=== PATIENT | female | born 1970 | race Hispanic/Latino ===

== ENCOUNTER 2016-10-10 20:16 | Emergency (ER) | payer OTHER ==
[2016-10-10] MEDS ORDERED: ACETAMINOPHEN 325 MG TABLET PO ONE ×2 (20:57)
[2016-10-10] MEDS ORDERED: cloNIDine HCL 0.1 MG TABLET PO ONE (20:57)
--- NOTE | 2016-10-10 21:51 | ER PHYSICIAN DOCUMENTATION ---
Physician Documentation [facility] Name:Bianca Galvan Age:46 yrs Sex:Female :1970 Arrival Date:10/10/2016 Time:20:16 BedTrauma B Private MD: Sanket Pereyra Disposition: 10/10/16 21:15 Discharged to Home/Self Care. Impression: Cephalgia - : 2nd to Alt[place] Illness and Hypertension, Dehydration. - Condition is Good. - Discharge Instructions: DEHYDRATION (7y-Adult), HEADACHE, Unspecified, Blood Pressure - HYPERTENSION, To Be Confirmed. - Medical Reconciliation form form. - Follow up: Private Physician; When: 7 - 10 days; Reason: Recheck today's complaints, Continuance of care. - Problem is new. - Symptoms have improved. - Notes: Drink 2 -3 quarts of water or Gatorade every day. Rest...go to lower elevation if symptoms continue... Take Tylenol 650mg by mouth every 6 hours for headache... HPI: 10/10 20:20 This 46 yrs old Female presents to ER via Private Vehicle with complaints of cd Headache, Blood Pressure Problem. 20:20 The patient complains of pain to the forehead, right eye and left eye. The patient cd describes the headache as constant, a pressure. Onset: The symptoms/episode began/occurred acutely, 3 hour(s) ago. Associated signs and symptoms: Pertinent negatives: altered mental status, dizziness, fever, nausea, neck stiffness, paresthesias, sinus congestion, sinus tenderness, vision changes, vision loss, vomiting. Severity of symptoms: At its worst the pain was moderate, in the emergency department the pain is unchanged. Headache History: Denies prior headaches. Risk factors for subarachnoid hemhorrage: no risk factors present. Patient took her BP at home and was found with a BP of 179/115 at home. She has a Hx of Pre-eclampsia during , but has not formerly been diagnosed.. Historical: - Allergies: No known drug Allergies; - Home Meds: 1. None - PMHx: Hypertension; - PSHx: None; - Tetanus: unknown. - Ebola Screening: : Patient negative for fever greater than or equal to 101.5 degrees Fahrenheit, and additional compatible Ebola Virus Disease symptoms. Patient denies exposure to infectious person. Patient denies travel to an Ebola-affected area in the 21 days before illness onset. No symptoms or risks identified at this time. . - Immunization history: Unable to Obtain. - Social history: Smoking status: Patient states was never smoker of tobacco. Patient uses alcohol but reports only rare drinking. ROS: 21:00 ENT: Negative for injury, pain, epistaxis and discharge. cd Cardiovascular: Negative for chest pain, palpitations, edema and pleuritic pain. Respiratory: Negative for shortness of breath, dyspnea on exertion, cough, sputum production, wheezing, hemoptysis and pleuritic chest pain. Back: Negative for injury, pain or muscle spasms. : Negative for injury, bleeding, discharge, dysuria, frequency, urgency and swelling. MS/Extremity: Negative for injury, deformity, edema, calf tenderness, pain or coldness. 21:00 Skin: Negative for injury, rash, itching and discoloration. cd 21:00 Constitutional: Positive for poor PO intake, Negative for chills, fever. 21:00 Neck: Negative for pain with movement, pain at rest, stiffness. 21:00 Abdomen/GI: Negative for nausea, vomiting. 21:00 Neuro: Positive for headache, Negative for altered mental status, gait disturbance, loss of consciousness, seizure activity, speech changes, syncope, near syncope, visual changes, weakness. 21:00 All other systems are negative. Exam: Head/Face: Normocephalic, atraumatic. ENT: Nares patent. No nasal discharge, no septal abnormalities noted. Tympanic membranes are normal and external auditory canals are clear. Oropharynx with no redness, swelling, or masses, exudates, or evidence of obstruction, uvula midline. Mucous membranes moist. Neck: Trachea midline, no thyromegaly or masses palpated, and no cervical lymphadenopathy. Supple, full range of motion without nuchal rigidity, or vertebral point tenderness. No Meningismus. Chest/axilla: Normal chest wall appearance and motion. Nontender with no deformity. No lesions are appreciated. Cardiovascular: Regular rate and rhythm with a normal S1 and S2. No gallops, murmurs, or rubs. Normal PMI, no JVD. No pulse deficits. Respiratory: Lungs have equal breath sounds bilaterally, clear to auscultation and percussion. No rales, rhonchi or wheezes noted. No increased work of breathing, no retractions or nasal flaring. Abdomen/GI: Soft, non-tender, with normal bowel sounds. No distension or tympany. No guarding or rebound. No evidence of tenderness throughout. Back: No spinal tenderness. No costovertebral tenderness. Full range of motion. Skin: Warm, dry with normal turgor. Normal color with no rashes, no lesions, and no evidence of cellulitis. 21:00 MS/ Extremity: Pulses equal, no cyanosis. Neurovascular intact. Full, normal range cd of motion. 21:00 Constitutional: The patient appears alert, awake, non-diaphoretic, non-toxic, well developed, well nourished, anxious, in obvious distress, moderately distressed. 21:00 Eyes: Pupils: equal, round, and reactive to light and accomodation, Extraocular movements: intact throughout. 21:00 Neuro: Orientation: is normal, to person, place & time. Mentation: is normal, Memory: is normal, Cranial nerves: CN II- XII are normal as tested, Motor: moves all fours, strength is normal, Sensation: is normal, Gait: is steady. Vital Signs: 20:30 BP 165 / 95; Pulse 77; Resp 28; Pulse Ox 96% on R/A; Pain 6/10; rs 21:17 BP 157 / 83; Pulse 69; Resp 20; Pulse Ox 97% on R/A; Pain 2/10; rs [place] Coma Score: 21:00 Eye Response: spontaneous(4). Verbal Response: oriented(5). Motor Response: obeys cd commands(6). Total: 15. 21:15 Eye Response: spontaneous(4). Verbal Response: oriented(5). Motor Response: obeys cd commands(6). Total: 15. MDM: 20:25 Differential diagnosis: cluster headache, hypertensive headache, tension headache, cd vasomotor headache, Dehydration. 20:36 Patient medically screened. cd 21:15 Neurological re-evaluation: normal neurological exam including cranial nerves, cd orientation, mentation, motor and sensory exam, cerebellar testing, GCS normal, and normal gait. Data reviewed: vital signs, nurses notes, old medical records, and as a result, I will discharge patient. Data interpreted: Pulse oximetry: on room air is 97 %. Interpretation: normal. Counseling: I had a detailed discussion with the patient and/or guardian regarding: the historical points, exam findings, and any diagnostic results supporting the discharge/admit diagnosis, the need for outpatient follow up, for a recheck, with the patient's primary care provider, to return to the emergency department if symptoms worsen or persist or if there are any questions or concerns that arise at home. Response to treatment: the patient's symptoms have markedly improved after treatment, the patient's condition has returned to base line, and as a result, I will discharge patient. Dispensed Medications: Completed: NS 0.9% 1000 ml IV at bolus once 20:52 Drug: NS 0.9% 1000 ml; Route: IV; Rate: bolus; Site: left antecubital; fc 21:36 Follow up: IV Status: Completed infusion; IV Intake: 1000ml rs 20:52 Drug: cloNIDine 0.1 mg; Route: PO; fc 21:37 Follow up: Response: No adverse reaction rs 20:52 Drug: Tylenol 975 mg; Route: PO; fc 21:37 Follow up: Response: Marked relief of symptoms rs Signatures: Naya Burrell RN RN rs Sanket Washington MD MD cd collins, floyd fc
--- NOTE | 2016-10-10 21:51 | ER NURSING DOCUMENTATION ---
Nurse's Notes [facility] Name:Bianca Galvan Age:46 yrs Sex:Female :1970 Arrival Date:10/10/2016 Time:20:16 BedTrauma B Private MD: Diagnosis:Cephalgia-: 2nd to Altitude Illness and Hypertension;Dehydration Presentation: 10/10 20:30 Method Of Arrival: Private Vehicle rs 20:30 Presenting complaint:. Transition of care: patient was not received from another setting of care. 20:30 Acuity: MICHELLE 3 rs 20:49 Presenting complaint: Patient states: C/O BRODY behind her eyes. Started yesterday after rs she came to [place] from [place]. She has been drinking large amounts of water, took one dose of Advil today at 1:30 without relief, and a dose of Excedrin at ^:30 pm which did give her a little relief. At 8 pm this evening her BP was checked 179/115, and then she decided to come to ER. Hx of HTN, not tx with medications. No vision changes, no n/v, does have some tingling in her right arm. Denies feeling stressed or anxious, she is here for a women's retreat. Triage Assessment: 21:00 Headache History: Denies prior headaches. General: Appears in no apparent distress, rs comfortable, well developed, well nourished, well groomed, Behavior is cooperative, pleasant. Pain: Complains of pain in Behind her eyes Pain currently is 6 out of 10 on a pain scale. EENT: No deficits noted. Denies blurred vision photophobia nasal congestion, nasal discharge. Neuro: No deficits noted. Level of Consciousness is awake, alert, Oriented to person, place, time, event, High Speed Warper Tender are equal bilaterally Moves all extremities. Gait is steady, Speech is normal, Facial symmetry appears normal, Pupils are PERRLA, Reports. Cardiovascular: No deficits noted. Capillary refill < 3 seconds Edema is absent. Pulses are 3+ in left radial artery Denies lightheadedness, palpitations, syncope, Chest pain is denied. Respiratory: No deficits noted. Respiratory effort is even, unlabored, Respiratory pattern is regular, symmetrical, Denies shortness of breath. GI: No deficits noted. Abdomen is flat, Bowel sounds present X 4 quads. Abd is soft and non tender. Derm: No deficits noted. Skin is pink, warm & dry. Historical: - Allergies: No known drug Allergies; - Home Meds: 1. None - PMHx: Hypertension; - PSHx: None; - Tetanus: unknown. - Ebola Screening: : Patient negative for fever greater than or equal to 101.5 degrees Fahrenheit, and additional compatible Ebola Virus Disease symptoms. Patient denies exposure to infectious person. Patient denies travel to an Ebola-affected area in the 21 days before illness onset. No symptoms or risks identified at this time. . - Immunization history: Unable to Obtain. - Social history: Smoking status: Patient states was never smoker of tobacco. Patient uses alcohol but reports only rare drinking. Screenin:08 Infectious Disease Risk None. Abuse screen: Denies threats or abuse. Nutritional rs screening: No deficits noted. Assessment: 21:07 See Triage Assessment done by same RN. rs Vital Signs: 20:30 BP 165 / 95; Pulse 77; Resp 28; Pulse Ox 96% on R/A; Pain 6/10; rs 21:17 BP 157 / 83; Pulse 69; Resp 20; Pulse Ox 97% on R/A; Pain 2/10; rs [place] Coma Score: 21:00 Eye Response: spontaneous(4). Verbal Response: oriented(5). Motor Response: obeys cd commands(6). Total: 15. 21:15 Eye Response: spontaneous(4). Verbal Response: oriented(5). Motor Response: obeys cd commands(6). Total: 15. ED Course: 20:18 Patient arrived in ED. ma1 20:36 Sanket Washington MD is Attending Physician. cd 20:40 Notified ED Physician of patient's arrival and chief complaint. Dr. Washington notified. Arm rs band placed on Bed in low position Call Light in Reach HOB Elevated Side rails up x1. 20:40 Adult w/ patient. Pulse Ox - RN Monitoring Only. Door closed. Noise minimized. Lights rs dimmed. Verbal reassurance given. 20:45 Naya Burrell, RN is Primary Nurse. rs 20:48 Triage completed. rs 20:50 Inserted saline lock: 20 gauge in left antecubital area and blood collected. rs 21:48 Discontinued IV intact, bleeding controlled, pressure dressing applied, No fc redness/swelling at site. Administered Medications: Completed: NS 0.9% 1000 ml IV at bolus once 20:52 Drug: NS 0.9% 1000 ml; Route: IV; Rate: bolus; Site: left antecubital; 21:36 Follow up: IV Status: Completed infusion; IV Intake: 1000ml rs 20:52 Drug: cloNIDine 0.1 mg; Route: PO; 21:37 Follow up: Response: No adverse reaction rs 20:52 Drug: Tylenol 975 mg; Route: PO; 21:37 Follow up: Response: Marked relief of symptoms rs Intake: 21:36 IV: 1000ml; Total: 1000ml. rs Outcome: 21:15 Discharge ordered by MD. hensley 21:49 Discharged to [facility] 21:49 Condition: improved 21:49 Discharge instructions given to patient, Instructed on discharge instructions, medication usage, hydration 21:51 Patient left the ED. Signatures: Naya Burrell RN RN Sanket Miranda MD MD cd collins, floyd Marie Escoto
== END 2016-10-10 21:51 | disposition home or self-care (01) ==
LOC: ER 20:16
DX: R51 Headache (principal); I10 Essential (primary) hypertension; E86.0 Dehydration; T70.29XA Other effects of high altitude, initial encounter; W94.11XA Exposure to residence or prolonged visit at high altitude, initial encounter
CPT/HCPCS: 96360; 99283